=== PATIENT | male | born 1950 | race African-American/Black ===

== ENCOUNTER → 2017-04-05 | Outpatient (CLI) | payer OTHER ==
--- NOTE | 2017-04-05 10:06 | US ---
EXAMINATION TYPE: US liver DATE OF EXAM: 04/05/2017 COMPARISON: NONE CLINICAL HISTORY: B18.2 chronic Hep C. Chronic Hepatitis C EXAM MEASUREMENTS: Liver Length: 16.0 cm Gallbladder Wall: 0.2 cm CBD: 0.4 cm Right Kidney: 10.7 x 4.4 x 4.8 cm Pancreas: limited evaluation due to overlying bowel content Liver: heterogeneous Gallbladder: no evidence of stones Evidence for sonographic Coello's sign: no CBD: appears wnl Right Kidney: cystic areas upper pole, largest = 2.7 x 2.9 x 2.4cm IMPRESSION: 1. Probable fatty hepatic infiltration. 2. Right renal cystic change.
[2017-04-05 10:45] LABS: INR 1.3 (<1.2); Prothrombin Time 12.3 sec (9.0-12.0)
[2017-04-05 10:58] LABS: Albumin 3.9 g/dL (3.5-5.0); Bilirubin, Delta 0.6 mg/dL (0.0-0.2); Bilirubin,Unconjugated 0.6 mg/dL (0.0-1.1); Total Bilirubin 1.2 mg/dL (0.2-1.3); Total Protein 7.9 g/dL (6.3-8.2)
[2017-04-05 11:11] LABS: Basophils % (A) 1 %; Eosinophils # (A) 0.2 k/uL (0-0.7); Eosinophils % (A) 4 %; HCT 41.7 % (39.0-53.0); HGB 13.1 gm/dL (13.0-17.5); Lymphocytes # (A) 1.4 k/uL (1.0-4.8); Lymphocytes % (A) 36 %; MCH 32.4 pg (25.0-35.0); MCHC 31.6 g/dL (31.0-37.0); MCV 102.6 fL (80.0-100.0); Macrocytosis Slight; Mean Platelet Volume 9.2; Monocytes # (A) 0.4 k/uL (0-1.0); Monocytes % (A) 11 %; Neutrophils # (A) 1.7 k/uL (1.3-7.7); Neutrophils % (A) 44 %; Platelet Count 128 k/uL (150-450); RBC 4.06 m/uL (4.30-5.90); RDW 15.4 % (11.5-15.5); WBC 3.8 k/uL (3.8-10.6)
== END | disposition home or self-care (01) ==
LOC: RADUSWWP 09:30
PROVIDERS: ATTEND Internal Medicine Gastroenterology
DX: N28.1 Cyst of kidney, acquired (principal); B18.2 Chronic viral hepatitis C
CPT/HCPCS: 36415; 76705; 80076; 82105; 85025; 85610; 87522; 87902

== ENCOUNTER → 2017-05-04 | Outpatient (CLI) | payer OTHER, MEDICARE ==
[2017-05-04 20:18] LABS: Blood Urea Nitrogen 13 mg/dL (9-20)
--- NOTE | 2017-05-04 22:17 | MR ---
EXAMINATION TYPE: MR liver wo/w con DATE OF EXAM: 05/04/2017 COMPARISON: Liver ultrasound April 05, 2017 HISTORY: Abnormal U/S, ABNORMALITY OF ALPHA-FETOPROTEIN. History of hepatitis C. CONTRAST: Standard multiplanar, multisequence MRI departmental protocol utilizing 7.5 mL intravenous Gadavist g adolinium contrast. Exam is performed of the abdomen focusing on the liver. FINDINGS: LIVER: Liver is overall normal in size and markedly heterogeneous in appearance which correlates with recent ultrasound. There is lobulated peripheral nodular contour which is consistent with underlying cirrhosis. Gallbladder is contracted on the MRI. There is no worrisome intrahepatic or extrahepatic biliary dilatation identified. Dynamic postcontrast images are suboptimal as no true arterial phase i s performed. There is no definitive suspicious focal solid or cystic mass identified. There is no wor risome enhancing lesion with washout to suggest focal hepatocellular carcinoma. Main portal vein exte nding into right and left portal veins are patent and not suspiciously dilated. There are patent hepa tic veins draining into IVC identified. No surrounding ascites is seen currently. OTHER: Visualized lung bases are clear. Spleen is normal in size. There is debris filled stomach cons istent with recent meal ingestion. Pancreas and both adrenal glands are normal in size. There is exop hytic simple appearing 3.2 cm cyst upper pole level right kidney. There are simple appearing 1.8 cm c yst medially mid to lower pole of the left kidney. There are a few additional tiny cysts scattered th roughout the remainder of the left kidney. No hydronephrosis is present bilaterally. No suspicious sm all or large bowel dilatation is present. No concerning abdominal fluid collection is seen. Patient h as very little abdominal fat making evaluation slightly suboptimal. No obvious adenopathy is noted. V isualized osseous structures are intact. IMPRESSION: Cirrhotic liver without suspicious intrahepatic mass or intrahepatic ductal dilatation. MRI findings correlate with recent ultrasound.
== END | disposition home or self-care (01) ==
LOC: RADMRIMAIN 19:32
PROVIDERS: ATTEND Physician Assistant
DX: K74.60 Unspecified cirrhosis of liver (principal)
CPT/HCPCS: 82565; 84520; 74183; 36415; A9581

== ENCOUNTER → 2017-07-04 | Outpatient (CLI) | payer OTHER, MEDICARE ==
[2017-07-04 09:26] LABS: HCT 33.3 % (39.0-53.0); HGB 11.4 gm/dL (13.0-17.5); MCH 32.9 pg (25.0-35.0); MCHC 34.1 g/dL (31.0-37.0); MCV 96.4 fL (80.0-100.0); Mean Platelet Volume 8.3; Platelet Count 134 k/uL (150-450); RBC 3.46 m/uL (4.30-5.90); WBC 4.9 k/uL (3.8-10.6)
[2017-07-04 09:54] LABS: Albumin 3.9 g/dL (3.5-5.0); Bilirubin, Delta 0.4 mg/dL (0.0-0.2); Bilirubin,Unconjugated 0.2 mg/dL (0.0-1.1); Total Bilirubin 0.6 mg/dL (0.2-1.3); Total Protein 8.3 g/dL (6.3-8.2)
[2017-07-05 15:12] LABS: Hepatits C Virus RNA DETECTED (Not detected); Hepatits C Virus RNA, Quant 22 IU/mL (<12); LOG HCV IU/mL 1.34 (<1.08)
== END | disposition home or self-care (01) ==
LOC: LABWHC1 08:46
PROVIDERS: ATTEND Physician Assistant
DX: B18.2 Chronic viral hepatitis C (principal)
CPT/HCPCS: 36415; 80076; 85027; 87522

== ENCOUNTER → 2017-10-30 | Outpatient (CLI) | payer OTHER, MEDICARE ==
[2017-10-30 09:14] LABS: HCT 28.7 % (39.0-53.0); HGB 8.8 gm/dL (13.0-17.5); MCH 27.3 pg (25.0-35.0); MCHC 30.7 g/dL (31.0-37.0); MCV 88.8 fL (80.0-100.0); Mean Platelet Volume 9.2; Platelet Count 173 k/uL (150-450); RBC 3.23 m/uL (4.30-5.90); RDW 14.8 % (11.5-15.5); WBC 4.3 k/uL (3.8-10.6)
== END | disposition home or self-care (01) ==
LOC: LABWHC1 08:40
PROVIDERS: ATTEND Physician Assistant
DX: B18.2 Chronic viral hepatitis C (principal)
CPT/HCPCS: 36415; 85027

== ENCOUNTER → 2017-11-09 | Outpatient (CLI) | payer OTHER, MEDICARE | END | disposition home or self-care (01) | LOC: LABWHC1 09:42 | PROVIDERS: ATTEND Physician Assistant | DX: B18.2 Chronic viral hepatitis C (principal) | CPT/HCPCS: 36415; 82105 ==

== ENCOUNTER 2017-12-11 07:35 | Day surgery (SDC) | payer OTHER, MEDICARE ==
[2017-12-06 12:24] VITALS: BMI 25.0
[~2017-12-11 07:35] MED LIST: LACTATED RINGERS 1,000 ML IV SCH
[2017-12-11 08:41] VITALS: TEMP 98.5
[2017-12-11] MEDS ORDERED: LIDOCAINE 1% 20 ML VIAL (10MG/ML) FOR IV START INTRADERMA ONE (08:52)
[2017-12-11] MEDS ORDERED: fentaNYL (PF) 50 MCG/ML 2 ML AMP ONE (09:13)
[2017-12-11] MEDS ORDERED: LIDOCAINE 1% INJ 10MG/ML (20 ML MDV) ONE (09:13)
[2017-12-11] MEDS ORDERED: PROPOFOL 10 MG/ML 20 ML VIAL IV ONE (09:13)
[2017-12-11 09:56] VITALS: RESP 18
--- NOTE | 2017-12-11 10:00 | P.PCN ---
Date of Procedure: 12/11/17 Procedure(s) Performed: Procedures: 1. Esophagogastroduodenoscopy and biopsy. 2. Total colonoscopy. Preoperative diagnosis: Iron deficiency anemia. Postoperative diagnosis: 1. Mild gastritis and duodenitis. 2. Normal colonoscopy. Preparation: HalfLytely prep. Sedation: Was provided by anesthesia. Brief clinical history: The patient is a 67-year-old male who is scheduled for this evaluation because of iron deficiency anemia. He had prior colonoscopy but no recent upper endoscopy and colonoscopy. He has no overt bleeding or any specific GI complaints at this time. Procedure: With the patient on his left lateral decubitus position and after informed consent and adequate sedation, I passed the Olympus-GIF 160 video upper endoscope through the cricopharyngeus down the esophagus. GE junction was around 41 cm from the incisors and there was no definite hiatal hernia or any obvious esophagitis or complicated reflux disease. The endoscope was then passed into the stomach which was insufflated with air and inspected in detail including the retroflex view in the cardia. There was some mottling, erythema and friability in the antrum but no ulcers or erosions. Pyloric channel did not show any ulcers. Duodenal bulb shows mottling, erythema and friability but no ulcers, erosions or bleeding. Post bulbar area and descending duodenum appeared normal. I obtained biopsies from the duodenum, antrum and esophagus then the endoscope was withdrawn and I proceeded with the colonoscopy. Perianal area did not show any fissures or fistulas. There were no masses felt on digital rectal examination. The Olympus CFQ 160L video colonoscope was then inserted in the rectum in the usual fashion and advanced to the cecum. The mucosa appeared healthy. No polyps or tumors were seen or any obvious diverticular disease or bleeding. No angiodysplasia or other potential sources of bleeding. I retroflexed the endoscope in the rectum before the endoscope was withdrawn. Low-grade internal hemorrhoids were noted with no evidence of bleeding. The patient tolerated the procedure well. Plan: The patient was reassured. Will await biopsy results. Consideration would be made for small bowel study depending on his clinical course and especially if there is evidence of bleeding in the GI tract either overtly or occult. I would be happy to see him in the future. He will follow up with you as planned.
[2017-12-11 10:26] VITALS: BP 121/82; PULSE 57
== END 2017-12-11 10:53 | disposition home or self-care (01) ==
LOC: ORWHC2ENDO 07:35
DX: K29.50 Unspecified chronic gastritis without bleeding (principal); D50.9 Iron deficiency anemia, unspecified; K29.80 Duodenitis without bleeding; K20.9 Esophagitis, unspecified; K64.8 Other hemorrhoids; F17.210 Nicotine dependence, cigarettes, uncomplicated; I10 Essential (primary) hypertension; Z79.82 Long term (current) use of aspirin; Z79.899 Other long term (current) drug therapy
CPT/HCPCS: 88305; 43239; 45378; J2001; J3010; J2704

== ENCOUNTER → 2018-05-21 | Outpatient (CLI) | payer OTHER, MEDICARE ==
[2018-05-21 10:18] LABS: HCT 37.2 % (39.0-53.0); HGB 12.2 gm/dL (13.0-17.5); MCH 31.6 pg (25.0-35.0); MCHC 32.7 g/dL (31.0-37.0); MCV 96.6 fL (80.0-100.0); Mean Platelet Volume 8.1; Platelet Count 144 k/uL (150-450); RBC 3.85 m/uL (4.30-5.90); WBC 4.1 k/uL (3.8-10.6)
[2018-05-21 18:34] LABS: Iron Saturation 31.01 (15.00-50.00)
[2018-05-21 18:36] LABS: Alpha Fetoprotein, Tumor Mkr 7.5 ng/mL (0.0-7.9)
[2018-05-21 18:51] LABS: Albumin/Globulin Ratio 1.18 (1.60-3.17); Bilirubin, Conjugated 0.3 mg/dL (0.20-0.40); Bilirubin,Unconjugated 0.6 mg/dL; Globulin 3.4 g/dL (1.6-3.3); Total Bilirubin 0.9 mg/dL (0.2-1.2); Total Protein 7.4 g/dL (6.2-8.2)
[2018-05-22 15:12] LABS: Hepatits C Virus RNA Not detected (Not detected); Hepatits C Virus RNA, Quant <12 IU/mL (<12); LOG HCV IU/mL <1.08 (<1.08)
== END | disposition home or self-care (01) ==
LOC: LABWHC1 09:12
PROVIDERS: ATTEND Physician Assistant
DX: B18.2 Chronic viral hepatitis C (principal); D64.9 Anemia, unspecified
CPT/HCPCS: 36415; 80076; 82105; 82728; 83540; 83550; 85027; 87522

== ENCOUNTER → 2018-06-14 | Outpatient (CLI) | payer OTHER, MEDICARE ==
--- NOTE | 2018-06-14 12:20 | US ---
EXAMINATION TYPE: US liver plus Doppler DATE OF EXAM: 06/14/2018 COMPARISON: Ultrasound 04/05/2017 CLINICAL HISTORY: 67-year-old male Cirrhosis of the liver K74.60; patient stated has Hepatitis C TECHNIQUE: Multiple sonographic images of the right upper quadrant are obtained. Color Doppler and sp ectral waveform analysis of the hepatic vasculature. FINDINGS: EXAM MEASUREMENTS: Liver Length: 15.1 cm Gallbladder Wall: 0.2 cm CBD: 0.5 cm Right Kidney: 11.0 x 5.2 x 4.0 cm Pancreas: Obscured by bowel gas Liver: Heterogeneous with coarsened echotexture and nodular contour compatible with cirrhosis. No mas ses seen -Color flow patency documented in Portal Veins with directional blood flow to liver; there is monopha sic waveform with peak systolic velocity of 15 cm/s. -The main portal vein is borderline to mildly dilated at 1.4 cm. Some peripherally oriented echoes or wall thickening is noted at its branch point with the left portal vein, images #[id number], [id number] -Common Hepatic Artery Flow to liver. -Hepatic Vein flow to IVC. Intimal wall thickening is noted at MPV confluence with Left Portal Vein on Gallbladder: wnl Evidence for sonographic Coello's sign: no CBD: wnl Right Kidney: couple of simple cysts noted in upper pole with larger cyst = 3.1 x 2.9 x 2.7cm. IMPRESSION: 1. Cirrhotic morphology of the liver. No sonographic evidence for hepatoma. 2. Some wall thickening/peripheral echoes in the main portal vein near its branch point with the left portal vein. Some nonocclusive, chronic mural-based thrombus is difficult to exclude. 3. There is normal hepatopedal flow of the portal vein but the vessel is mildly dilated with sluggish flow suggesting underlying portal venous hypertension.
== END ==
LOC: RADUSWWP 07:43
PROVIDERS: ATTEND Internal Medicine Gastroenterology
DX: K74.60 Unspecified cirrhosis of liver (principal); R93.89 Abnormal findings on diagnostic imaging of other specified body structures
CPT/HCPCS: 76705

== ENCOUNTER → 2018-12-10 | Outpatient (CLI) | payer OTHER, MEDICARE ==
[2018-12-10 10:08] LABS: HCT 34.4 % (39.0-53.0); HGB 11.8 gm/dL (13.0-17.5); MCH 32.6 pg (25.0-35.0); MCHC 34.5 g/dL (31.0-37.0); MCV 94.7 fL (80.0-100.0); Mean Platelet Volume 7.8; Platelet Count 168 k/uL (150-450); RBC 3.63 m/uL (4.30-5.90); RDW 14.6 % (11.5-15.5); WBC 5.1 k/uL (3.8-10.6)
[2018-12-10 10:17] LABS: INR 1.1 (<1.2); Prothrombin Time 11.5 sec (9.0-12.0)
[2018-12-10 16:07] LABS: Albumin 4.3 g/dL (3.80-4.90); Albumin/Globulin Ratio 1.3 (1.60-3.17); Bilirubin, Conjugated 0.3 mg/dL (0.20-0.40); Bilirubin,Unconjugated 0.4 mg/dL; Globulin 3.3 g/dL (1.6-3.3); Total Bilirubin 0.7 mg/dL (0.2-1.2); Total Protein 7.6 g/dL (6.2-8.2)
[2018-12-11 13:38] LABS: LOG HCV IU/mL <1.08 (<1.08)
== END | disposition home or self-care (01) ==
LOC: LABWHC1 09:14
PROVIDERS: ATTEND Physician Assistant
DX: B18.2 Chronic viral hepatitis C (principal)
CPT/HCPCS: 36415; 80076; 82105; 85027; 85610; 87522

== ENCOUNTER → 2019-06-11 | Outpatient (CLI) | payer OTHER, MEDICARE ==
[2019-06-11 09:49] LABS: HCT 32.8 % (39.0-53.0); HGB 10.5 gm/dL (13.0-17.5); MCV 90.6 fL (80.0-100.0); Mean Platelet Volume 9.5; Platelet Count 179 k/uL (150-450); RBC 3.62 m/uL (4.30-5.90); RDW 15.3 % (11.5-15.5); WBC 3.6 k/uL (3.8-10.6)
[2019-06-11 09:52] LABS: INR 1.1 (<1.2); Prothrombin Time 11.3 sec (9.0-12.0)
[2019-06-11 16:00] LABS: Albumin 4.4 g/dL (3.80-4.90); Albumin/Globulin Ratio 1.29 (1.60-3.17); Bilirubin, Conjugated 0.2 mg/dL (0.20-0.40); Bilirubin,Unconjugated 0.3 mg/dL; Globulin 3.4 g/dL (1.6-3.3); Total Bilirubin 0.5 mg/dL (0.3-1.2); Total Protein 7.8 g/dL (6.2-8.2)
[2019-06-11 16:03] LABS: Alpha Fetoprotein, Tumor Mkr 6.4 ng/mL (0.0-7.9)
== END | disposition home or self-care (01) ==
LOC: LABWHC1 09:11
PROVIDERS: ATTEND Physician Assistant
DX: B18.2 Chronic viral hepatitis C (principal)
CPT/HCPCS: 36415; 80076; 82105; 85027; 85610; 87522

== ENCOUNTER → 2019-12-25 | Outpatient (CLI) | payer OTHER, MEDICARE ==
[2019-12-25 13:37] LABS: HCT 35.4 % (39.0-53.0); HGB 11.2 gm/dL (13.0-17.5); MCH 29.2 pg (25.0-35.0); MCHC 31.7 g/dL (31.0-37.0); MCV 92.3 fL (80.0-100.0); Mean Platelet Volume 8.9; Platelet Count 163 k/uL (150-450); RBC 3.83 m/uL (4.30-5.90); RDW 15.9 % (11.5-15.5); WBC 4.9 k/uL (3.8-10.6)
[2019-12-25 21:20] LABS: INR 1.05 (0.90-1.11); Prothrombin Time 11.2 sec (9.9-11.9)
[2019-12-26 03:45] LABS: Albumin 4.4 g/dL (3.80-4.90); Albumin/Globulin Ratio 1.33 (1.60-3.17); Bilirubin, Conjugated 0.2 mg/dL (0.20-0.40); Bilirubin,Unconjugated 0.3 mg/dL; Globulin 3.3 g/dL (1.6-3.3); Total Bilirubin 0.5 mg/dL (0.3-1.2); Total Protein 7.7 g/dL (6.2-8.2)
[2019-12-26 06:15] LABS: Alpha Fetoprotein, Tumor Mkr 5.9 ng/mL (0.0-7.9)
== END | disposition home or self-care (01) ==
LOC: LABWHC1 12:16
PROVIDERS: ATTEND Physician Assistant
DX: B18.2 Chronic viral hepatitis C (principal)
CPT/HCPCS: 36415; 80076; 82105; 85027; 85610; 87522

== ENCOUNTER → 2021-03-08 | Outpatient (CLI) | payer OTHER, MEDICARE ==
[2021-03-08 15:35] LABS: INR 1.03 (0.90-1.11); Prothrombin Time 11.6 sec (9.9-11.9)
[2021-03-08 16:04] LABS: ALT 12 U/L (10-49); AST 26 U/L (14-35); Albumin 4.3 g/dL (3.8-4.9); Albumin/Globulin Ratio 1.32 (1.60-3.17); Alkaline Phosphatase 69 U/L (41-126); Bilirubin, Conjugated <0.20 mg/dL (0.20-0.40); Globulin 3.3 g/dL (1.6-3.3); Total Protein 7.6 g/dL (6.2-8.2)
[2021-03-08 17:21] LABS: HCT 26.8 % (39.6-50.0); HGB 8.7 g/dL (13.0-17.0); MCH 24.9 pg (27.0-32.0); MCHC 32.5 g/dL (32.0-37.0); MCV 76.8 fL (80.0-97.0); Mean Platelet Volume 10.6 fL (9.5-12.2); Platelet Count 162 X 10*3/uL (140-440); RBC 3.49 X 10*6/uL (4.40-5.60); RDW 21.6 % (11.5-14.5); WBC 3.54 X 10*3/uL (4.50-10.00)
== END | disposition home or self-care (01) ==
LOC: LABWHC1 09:45
PROVIDERS: ATTEND Physician Assistant
DX: B18.2 Chronic viral hepatitis C (principal)
CPT/HCPCS: 36415; 80076; 82105; 85027; 85610; 87522

== ENCOUNTER → 2021-10-29 | Day surgery (SDC) | payer OTHER, MEDICARE ==
[2021-10-28 08:41] VITALS: BMI 24.2
[~2021-10-29] MED LIST changes: +LIDOCAINE 1% (10MG/ML) FOR IV START INTRADERMA ONE; +LIDOCAINE 2% INJ 20 MG/ML (2 ML VIAL) ONE; +PROPOFOL 10 MG/ML 20 ML VIAL IV ONE
[2021-10-29 10:06] VITALS: RESP 16; TEMP 97.7
--- NOTE | 2021-10-29 10:41 | P.PCN ---
Date of Procedure: 10/29/21 Procedure(s) Performed: BRIEF HISTORY: Patient is a 70-year-old -[place] male scheduled for an upper endoscopy for screening for esophageal varices. Patient has history of chronic hep C infection with cirrhosis of the liver that is well compensated. He was treated for chronic hep C in 2018.. PROCEDURE PERFORMED: Esophagogastroduodenoscopy with biopsy. PREOPERATIVE DIAGNOSIS: History of liver cirrhosis/screening for esophageal varices. IV sedation per anesthesia. PROCEDURE: After informed consent was obtained, the patient was brought into the endoscopy unit. IV sedation was administered by Anesthesia under continuous monitoring. Initially the Olympus GIF-140 video endoscope was inserted into the mouth. Esophagus intubated without any difficulty. It was gradually advanced into the stomach and duodenum and carefully examined. The bulb and the second part of the duodenum appeared normal. The scope at this time was withdrawn to the stomach, adequately insufflated with air, and upon careful examination, mucosa of the antrum had mild gastritis and biopsies were done from this area. The, body, cardia and the fundus appeared normal. The scope was then withdrawn into the esophagus. The GE junction was located at 39 cm from the incisors small sliding type hiatal hernia noted.. The esophagus appeared normal. There were no erosions or ulcerations seen. No evidence of esophageal or gastric varices and the patient tolerated the procedure well. IMPRESSION: 1. No evidence of gastric or esophageal varices. 2. Mild antral gastritis and small hiatal hernia. RECOMMENDATIONS: The findings of this examination were discussed with the patient as well as his family. He was advised to follow up with the biopsy results. Recommend repeat EGD in 2-3 years to screen for esophageal varices.
[2021-10-29 11:09] VITALS: BP 146/78; PULSE 61
== END ==
LOC: ORWHC2ENDO 09:24
PROVIDERS: ATTEND Internal Medicine Gastroenterology
DX: K31.A11 Gastric intestinal metaplasia without dysplasia, involving the antrum (principal); K29.50 Unspecified chronic gastritis without bleeding; K74.60 Unspecified cirrhosis of liver; B19.20 Unspecified viral hepatitis C without hepatic coma; I10 Essential (primary) hypertension; Z72.0 Tobacco use; Z97.2 Presence of dental prosthetic device (complete) (partial); Z79.1 Long term (current) use of non-steroidal anti-inflammatories (NSAID); Z79.82 Long term (current) use of aspirin; Z79.899 Other long term (current) drug therapy
CPT/HCPCS: 88305; 43239; J2704; J2001

== ENCOUNTER → 2021-10-29 | Outpatient (CLI) | payer OTHER, MEDICARE ==
--- NOTE | 2021-10-29 10:29 | US ---
EXAMINATION TYPE: US liver DATE OF EXAM: 10/29/2021 COMPARISON: Prior liver ultrasound 2019 CLINICAL HISTORY: cirrhosis of liver K74.60. TECHNIQUE: Multiple sonographic images of the right upper quadrant are obtained. FINDINGS: EXAM MEASUREMENTS: Liver Length: 14.9 cm Gallbladder Wall: 0.2 cm CBD: 0.4 cm Right Kidney: 10.2 X 4.5 X 4.1 cm PHYSICAL THERAPY COORDINATOR NOTES: Pancreas: Obscured by bowel gas Liver: Coarse echotexture, MPV and hepatic artery patent and show hepatopedal flow Gallbladder: wnl Evidence for sonographic Coello's sign: No CBD: wnl Right Kidney: Cyst upper pole= 3.9 x 2.6 x 3.1 cm Suboptimal evaluation of pancreas on initial images. Visualized liver remains heterogeneous. Evaluati on for focal masses suboptimal due to the heterogeneity. No ductal dilatation. No new surrounding asc ites. Abdominal near 3.0 cm simple appearing thin-walled cyst from upper pole right kidney. No right- sided hydronephrosis. Gallbladder shows no intraluminal shadowing mobile gallstones. No new biliary d ilatation. IMPRESSION: Persistent heterogeneous hyperechoic appearance of liver consistent with known hepatocell ular disease. No significant change from 2019 ultrasound.
== END | disposition home or self-care (01) ==
LOC: RADUSWWP 09:30
PROVIDERS: ATTEND Internal Medicine Gastroenterology
DX: K74.60 Unspecified cirrhosis of liver (principal)
CPT/HCPCS: 76705

== ENCOUNTER → 2022-07-12 | Outpatient (CLI) | payer OTHER, MEDICARE ==
[2022-07-12 16:43] LABS: HCT 28.1 % (39.6-50.0); HGB 9.2 g/dL (13.0-17.0); MCH 28.1 pg (27.0-32.0); MCHC 32.7 g/dL (32.0-37.0); MCV 85.9 fL (80.0-97.0); Mean Platelet Volume 12.2 fL (9.5-12.2); NRBC Per 100 WBC 0 /100 WBCS (0.0-0.0); Platelet Count 175 X 10*3/uL (140-440); RBC 3.27 X 10*6/uL (4.40-5.60); WBC 4.29 X 10*3/uL (4.50-10.00)
[2022-07-12 16:51] LABS: African American GFR (CKD) 53.9 (60.0-200.0); Albumin 4.4 g/dL (3.8-4.9); Albumin/Globulin Ratio 1.26 (1.60-3.17); Anion Gap 8.2 mmol/L (10.00-18.00); BUN/Creat Ratio 11.07 Ratio (12.00-20.00); Blood Urea Nitrogen 16.6 mg/dL (9.0-27.0); Calcium 9.8 mg/dL (8.7-10.3); Carbon Dioxide 27.8 mmol/L (20.0-27.5); Globulin 3.5 g/dL (1.6-3.3); Non-African American GFR(CKD) 46.5 (60.0-200.0); Potassium 4.1 mmol/L (3.5-5.5); Total Bilirubin 0.2 mg/dL (0.30-1.20); Total Protein 7.9 g/dL (6.2-8.2)
== END | disposition home or self-care (01) ==
LOC: LABWHC1 08:58
PROVIDERS: ATTEND Internal Medicine Gastroenterology
DX: K74.60 Unspecified cirrhosis of liver (principal)
CPT/HCPCS: 36415; 80053; 82105; 85027

== ENCOUNTER → 2022-07-14 | Outpatient (CLI) | payer OTHER, MEDICARE ==
--- NOTE | 2022-07-14 09:44 | US ---
EXAMINATION TYPE: US liver DATE OF EXAM: 07/14/2022 COMPARISON: NONE CLINICAL INDICATION: Male, 71 years old with history of K74.60 CIRRHOSIS OF LIVER Cirrhosis TECHNIQUE: Multiple sonographic images of the right upper quadrant are obtained. FINDINGS: EXAM MEASUREMENTS: Liver Length: 15.5 cm Gallbladder Wall: .2 cm CBD: .3 cm Right Kidney: 11.8 x 4.8 x 5.3 cm CLAY MINER NOTES: Pancreas: Tail obscured by overlying bowel gas Liver: Increased attenuation Gallbladder: No stones seen Evidence for sonographic Coello's sign: No CBD: wnl Right Kidney: Anechoic area seen upper pole 4.6 x 3.2 x 4.1 cm. The visualized portions of the pancreas is unremarkable. The tail is obscured by overlying bowel gas. Coarsened hyperechoic echotexture of the liver without focal lesion. Evaluation is limited due to he terogeneous appearance of the liver. No cholelithiasis, wall thickening, pericholecystic fluid. Per s onographer, negative sonographic Coello sign. The common bile duct is within normal limits. A cyst is demonstrated within the upper pole of the right kidney measuring up to 4.6 cm. No hydronephrosis or solid contour deforming mass or nephrolithiasis. IMPRESSION: Persistent heterogenous hyperechoic appearance of liver consistent with known hepatocellular disease. No significant change from prior exam.
== END | disposition home or self-care (01) ==
LOC: RADUSWWP 08:44
PROVIDERS: ATTEND Internal Medicine Gastroenterology
DX: K74.60 Unspecified cirrhosis of liver (principal); K76.89 Other specified diseases of liver
CPT/HCPCS: 76705

== ENCOUNTER → 2022-09-05 | Outpatient (CLI) | payer OTHER, MEDICARE ==
[2022-09-05 15:57] LABS: % Iron Saturation 12.75 (15.00-50.00); ALT 12 U/L (10-49); AST 30 U/L (14-35); Albumin 4.3 d/dL (3.8-4.9); Albumin/Globulin Ratio 1.34 Ratio (1.60-3.17); Alkaline Phosphatase 70 U/L (41-126); BUN/Creat Ratio 11.28 Ratio (12.00-20.00); Blood Urea Nitrogen 20.3 mg/dL (9.0-27.0); Calcium 9.8 mg/dL (8.7-10.3); Carbon Dioxide 24.9 mmol/L (21.6-31.8); Chloride 105 mmol/L (96-109); Ferritin 23.8 ng/mL (22.0-322.0); Globulin 3.2 d/dL (1.6-3.3); Glucose 69 mg/dL (70-110); Iron 51 UG/DL (65-175); Potassium 4.6 mmol/L (3.5-5.5); Sodium 141 mmol/L (135-145); Total Bilirubin 0.3 mg/dL (0.3-1.2); Total Iron Binding Capacity 400 UG/DL (228-460); Total Protein 7.5 d/dL (6.2-8.2)
== END | disposition home or self-care (01) ==
LOC: LABWHC1 10:35
PROVIDERS: ATTEND Nurse Practitioner Family
DX: D50.9 Iron deficiency anemia, unspecified (principal); K74.60 Unspecified cirrhosis of liver
CPT/HCPCS: 36415; 80053; 82105; 82728; 83540; 83550

== ENCOUNTER → 2023-01-16 | Outpatient (CLI) | payer OTHER, MEDICARE ==
[2023-01-16 16:41] LABS: Chol/HDL Ratio 2.27 Ratio; Prostate Specific Antigen 3.62 ng/mL (0.000-6.500); VLDL Calculation 13.62 mg/dL (5.00-40.00)
== END | disposition home or self-care (01) ==
LOC: LABWHC1 09:48
PROVIDERS: ATTEND Family Medicine
DX: Z00.01 Encounter for general adult medical examination with abnormal findings (principal); E66.3 Overweight; N40.1 Benign prostatic hyperplasia with lower urinary tract symptoms; R53.83 Other fatigue
CPT/HCPCS: 36415; 80061; 84153

== ENCOUNTER → 2023-02-06 | Outpatient (CLI) | payer OTHER, MEDICARE ==
[2023-02-06 16:53] LABS: HCT 30.8 % (39.6-50.0); HGB 9.9 g/dL (13.0-17.0); MCH 28.1 pg (27.0-32.0); MCHC 32.1 g/dL (32.0-37.0); MCV 87.5 FL (80.0-97.0); Mean Platelet Volume 12.2 FL (9.5-12.2); NRBC Per 100 WBC 0 X 10*3/uL (0.00-0.01); Platelet Count 188 X 10*3/uL (140-440); RBC 3.52 X 10*6/uL (4.40-5.60); RDW 16.8 % (11.5-14.5); WBC 4.34 X 10*3/uL (4.50-10.00)
== END | disposition home or self-care (01) ==
LOC: LABWHC1 08:55
PROVIDERS: ATTEND Internal Medicine Gastroenterology
DX: K74.60 Unspecified cirrhosis of liver (principal)
CPT/HCPCS: 36415; 85027

== ENCOUNTER → 2023-02-27 | Outpatient (CLI) | payer OTHER, MEDICARE ==
--- NOTE | 2023-02-27 07:51 | US ---
EXAMINATION TYPE: US liver DATE OF EXAM: 02/27/2023 COMPARISON: 07/14/2022 CLINICAL INDICATION: Male, 72 years old with history of K74.60 CIRRHOSIS OF LIVER; TECHNIQUE: Multiple sonographic images of the right upper quadrant are obtained. FINDINGS: EXAM MEASUREMENTS: Liver Length: 15.8 cm Gallbladder Wall: 0.2 cm CBD: 0.3 cm Right Kidney: 11.4 x 4.7 x 5.8 cm Pancreas: heterogenous Liver: heterogenous no suspicious ulcerations, cystic structures are dilated ducts. Gallbladder: debris seen with change in patient position; possible gallbladder wall polyp measuring 2 mm versus adherent gallstone. Evidence for sonographic Coello's sign: No CBD: wnl Right Kidney: cyst = 3.7 x 3.8 x 4.1 cm IMPRESSION: 1. Very suggestive of hepatic cirrhosis. No suspicious observations. 2. Cholelithiasis. 3. Right simple appearing renal cyst.
== END | disposition home or self-care (01) ==
LOC: RADUSWWP 07:27
PROVIDERS: ATTEND Internal Medicine Gastroenterology
DX: N28.1 Cyst of kidney, acquired (principal); K74.60 Unspecified cirrhosis of liver; K80.20 Calculus of gallbladder without cholecystitis without obstruction
CPT/HCPCS: 76705

== ENCOUNTER → 2023-08-08 | Outpatient (CLI) | payer MEDICARE, OTHER ==
[2023-08-08 18:38] LABS: HCT 33.8 % (39.6-50.0); HGB 11.3 g/dL (13.0-17.0); MCH 30.5 pg (27.0-32.0); MCHC 33.4 g/dL (32.0-37.0); MCV 91.1 FL (80.0-97.0); Mean Platelet Volume 12.1 FL (9.5-12.2); NRBC Per 100 WBC 0 X 10*3/uL (0.00-0.01); Platelet Count 177 X 10*3/uL (140-440); RBC 3.71 X 10*6/uL (4.40-5.60); RDW 16.5 % (11.5-14.5); WBC 4.91 X 10*3/uL (4.50-10.00)
[2023-08-08 20:26] LABS: ALT 13 U/L (10-49); AST 30 U/L (14-35); Albumin 4.5 g/dL (3.8-4.9); Albumin/Globulin Ratio 1.36 Ratio (1.60-3.17); Alkaline Phosphatase 71 U/L (41-126); BUN/Creat Ratio 12.47 Ratio (12.00-20.00); Blood Urea Nitrogen 18.7 mg/dL (9.0-27.0); Calcium 10.1 mg/dL (8.7-10.3); Carbon Dioxide 24.7 mmol/L (21.6-31.8); Chloride 103 mmol/L (96-109); Globulin 3.3 g/dL (1.6-3.3); Glucose 94 mg/dL (70-110); Potassium 3.8 mmol/L (3.5-5.5); Sodium 141 mmol/L (135-145); Total Bilirubin 0.5 mg/dL (0.3-1.2); Total Protein 7.8 g/dL (6.2-8.2)
== END | disposition home or self-care (01) ==
LOC: LABWHC1 08:41
PROVIDERS: ATTEND Internal Medicine Gastroenterology
DX: K74.60 Unspecified cirrhosis of liver (principal)
CPT/HCPCS: 36415; 80053; 82105; 85027

== ENCOUNTER → 2023-08-10 | Outpatient (CLI) | payer MEDICARE, OTHER ==
--- NOTE | 2023-08-10 17:54 | US ---
EXAMINATION TYPE: US liver DATE OF EXAM: 08/10/2023 COMPARISON: Multiple US's CLINICAL INDICATION: Male, 72 years old with history of K74.60 CIRRHOSIS OF LIVER; Known cirrhosis TECHNIQUE: Multiple sonographic images of the right upper quadrant are obtained. FINDINGS: EXAM MEASUREMENTS: Liver Length: 15.7 cm Gallbladder Wall: 0.2 centimeters CBD: 0.3 cm Right Kidney: 10.7 cm Pancreas: wnl, tail obscured by overlying bowel gas Liver: Coarse echotexture, heterogeneous, similar in appearance as compared to prior Gallbladder: wnl Evidence for sonographic Coello's sign: No CBD: wnl Right Kidney: Cyst upper pole= 4.1 x 3.0 x 4.0 cm, similar in appearance when compared to prior IMPRESSION: 1. Coarsened liver echotexture is suggestion of liver margin nodularity. Findings are consistent with cirrhosis, stable compared to previous. 2. Pancreatic tail limited by bowel gas. 3. Normal gallbladder. 4. Stable right renal cyst.
== END | disposition home or self-care (01) ==
LOC: RADUSWWP 08:47
PROVIDERS: ATTEND Internal Medicine Gastroenterology
DX: K74.60 Unspecified cirrhosis of liver (principal); R14.3 Flatulence; N28.1 Cyst of kidney, acquired
CPT/HCPCS: 76705

== ENCOUNTER → 2024-01-15 | Outpatient (CLI) | payer OTHER, MEDICARE ==
[2024-01-15 16:07] LABS: HCT 28.8 % (39.6-50.0); HGB 9.8 g/dL (13.0-17.0); MCH 31.6 pg (27.0-32.0); MCV 92.9 FL (80.0-97.0); Mean Platelet Volume 11.8 FL (9.5-12.2); NRBC Per 100 WBC 0 X 10*3/uL (0.00-0.01); Platelet Count 178 X 10*3/uL (140-440); RDW 15.4 % (11.5-14.5)
[2024-01-15 22:35] LABS: ALT 13 U/L (10-49); AST 29 U/L (14-35); Albumin 4.2 g/dL (3.8-4.9); Albumin/Globulin Ratio 1.35 Ratio (1.60-3.17); Alkaline Phosphatase 73 U/L (41-126); BUN/Creat Ratio 16.13 Ratio (12.00-20.00); Blood Urea Nitrogen 24.2 mg/dL (9.0-27.0); Calcium 9.7 mg/dL (8.7-10.3); Carbon Dioxide 22.5 mmol/L (21.6-31.8); Chloride 105 mmol/L (96-109); Chol/HDL Ratio 2.42 Ratio; Globulin 3.1 g/dL (1.6-3.3); Glucose 93 mg/dL (70-110); LDL Cholesterol,Calculated 72.9 mg/dL (0.0-131.0); Potassium 4.1 mmol/L (3.5-5.5); Prostate Specific Antigen 4.08 ng/mL (0.000-6.500); Sodium 142 mmol/L (135-145); Total Bilirubin 0.3 mg/dL (0.3-1.2); Total Protein 7.3 g/dL (6.2-8.2); VLDL Calculation 11.68 mg/dL (5.00-40.00)
== END | disposition home or self-care (01) ==
LOC: LABWHC1 09:21
PROVIDERS: ATTEND Family Medicine
CPT/HCPCS: 36415; 80053; 80061; 84153; 85027

== ENCOUNTER → 2024-01-19 | Outpatient (CLI) | payer OTHER, MEDICARE ==
[2024-01-19 18:30] LABS: HGB 9.8 g/dL (13.0-17.0); MCH 31.4 pg (27.0-32.0); MCHC 33.8 g/dL (32.0-37.0); MCV 92.9 FL (80.0-97.0); Mean Platelet Volume 11.4 FL (9.5-12.2); NRBC Per 100 WBC 0 X 10*3/uL (0.00-0.01); Platelet Count 201 X 10*3/uL (140-440); RBC 3.12 X 10*6/uL (4.40-5.60); RDW 15.1 % (11.5-14.5)
[2024-01-19 18:54] LABS: ALT 14 U/L (10-49); AST 29 U/L (14-35); Albumin 4.3 g/dL (3.8-4.9); Albumin/Globulin Ratio 1.23 Ratio (1.60-3.17); Alkaline Phosphatase 81 U/L (41-126); BUN/Creat Ratio 10.64 Ratio (12.00-20.00); Blood Urea Nitrogen 14.9 mg/dL (9.0-27.0); Calcium 9.7 mg/dL (8.7-10.3); Carbon Dioxide 29.5 mmol/L (21.6-31.8); Chloride 103 mmol/L (96-109); Globulin 3.5 g/dL (1.6-3.3); Glucose 91 mg/dL (70-110); Potassium 3.9 mmol/L (3.5-5.5); Sodium 142 mmol/L (135-145); Total Bilirubin 0.3 mg/dL (0.3-1.2); Total Protein 7.8 g/dL (6.2-8.2)
== END | disposition home or self-care (01) ==
LOC: LABWHC1 13:57
PROVIDERS: ATTEND Nurse Practitioner Family
DX: K74.60 Unspecified cirrhosis of liver (principal)
CPT/HCPCS: 36415; 80053; 82105; 85027

== ENCOUNTER → 2024-01-25 | Outpatient (CLI) | payer OTHER, MEDICARE ==
--- NOTE | 2024-01-25 14:55 | US ---
EXAMINATION TYPE: US liver DATE OF EXAM: 01/25/2024 COMPARISON: 08/10/23 CLINICAL INDICATION: Male, 73 years old with history of K74.60 UNSPECIFIED CIRRHOSIS OF LIVER; cirrho sis TECHNIQUE: Grayscale and color Doppler imaging of the right upper quadrant was performed. FINDINGS: EXAM MEASUREMENTS: Liver Length: 14.7 cm Gallbladder Wall: 0.24 cm CBD: 0.32 cm Right Kidney: 9.0 x 4.4 x 4.1 cm PAYROLL ASSOCIATE NOTES: Pancreas: Obscured by bowel gas Liver: diffusely heterogeneous, coarse echotexture Gallbladder: wnl Evidence for sonographic Coello's sign: No CBD: wnl Right Kidney: cystic area sup pole measuring 4.3 x 3.3 x 2.6cm Liver is diffusely heterogenous with coarse echotexture and surface nodularity. No focal lesion ident ified. No gallstones, wall thickening or surrounding fluid. Negative sonographic Coello sign. Pancrea s is obscured by overlying bowel gas. Common bile duct is within normal limits. No hydronephrosis or shadowing renal calculi within the right kidney. Simple cyst within the upper pole measurement of 4.3 cm. No visualized ascites within the right upper quadrant. IMPRESSION: 1. Hepatic cirrhosis without focal lesion identified. 2. Stable simple right renal cyst. [facility], , 01/25/2024 2:53 PM
== END | disposition home or self-care (01) ==
LOC: RADUSWWP 14:19
PROVIDERS: ATTEND Internal Medicine Gastroenterology
CPT/HCPCS: 76705

== ENCOUNTER → 2024-02-29 | Outpatient (CLI) | payer OTHER ==
--- NOTE | 2024-02-29 13:30 | MR ---
EXAMINATION TYPE: MR brain wo/w con DATE OF EXAM: 02/29/2024 12:34 PM COMPARISON: None. CLINICAL INDICATION: Male, 73 years old with history of H53.432 visual field defect, visual field def ect, attention to right parietal lobe IV Contrast: 7 cc Gadavist (None if empty) TECHNIQUE: Multiplanar, multisequence images of the brain and brainstem were acquired before and aft er administration of 7 mL IV Gadavist. Diffusion weighted imaging is performed. FINDINGS: No evidence for acute infarction, hemorrhage, midline shift shift, herniation, or effacement of basal cisterns. Some slight scalloping of the inner table along the lateral right frontal convexity and prominence to the underlying CSF space measuring 2.6 cm wide and 7 mm thick. Possible small arachnoid cyst here. There is mild age-related volume loss overlying the bilateral cerebral convexities. No hydrocephalus. Major intracranial flow voids are intact. T2/FLAIR weighted sequences show mild to moderate scattered bright signal foci within the subcortical and deep white matter regions of both cerebral hemispheres. Expressly 20 foci in the right cerebral hemisphere and 15 foci in the left cerebral hemisphere. Largest focus measuring 7 mm subcortical larry on lateral right frontoparietal junction. Midline structures demonstrate normal morphology. The craniocervical junction is normal. Post contrast images demonstrate no evidence of pathologic enhancement. Dural venous sinuses are pat ent. Trace mucosal thickening in the ethmoid air cells. The globes are intact. IMPRESSION: 1. Mild age-related cerebral atrophy. No acute intracranial abnormality seen. No enhancing lesions. 2. Scattered T2 bright white matter change and posterior hemispheres with mild to moderate burden. No nspecific findings most likely relating to chronic small vessel ischemic disease. Demyelinating disea se, chronic migraines, and chronic hypertension are also differential considerations. 3. Prominence to the CSF space with slight scalloping of the inner table of the skull at the along th e lateral right frontal convexity. Etiology unclear. Possibly due to an underlying 2.6 x 0.7 cm arach noid cyst. Consider 6 month follow-up to reassess. [facility], , 02/29/2024 1:27 PM
== END | disposition home or self-care (01) ==
LOC: RADMRIMAIN 11:53
PROVIDERS: ATTEND Ophthalmology
DX: H53.432 Sector or arcuate defects, left eye (principal); G93.0 Cerebral cysts; I10 Essential (primary) hypertension; G43.909 Migraine, unspecified, not intractable, without status migrainosus; G37.89 Other specified demyelinating diseases of central nervous system
CPT/HCPCS: 70553; A9585

== ENCOUNTER → 2024-04-04 | Outpatient (CLI) | payer OTHER, MEDICARE ==
[2024-04-04 15:25] LABS: % Iron Saturation 19.73 (15.00-50.00)
== END | disposition home or self-care (01) ==
LOC: LABWHC1 09:40
PROVIDERS: ATTEND Nurse Practitioner Family
DX: D50.9 Iron deficiency anemia, unspecified (principal)
CPT/HCPCS: 36415; 82728; 83540; 83550

== ENCOUNTER 2024-05-24 06:51 | Day surgery (SDC) | payer OTHER, MEDICARE ==
[2024-05-22 11:58] VITALS: BMI 23.8
[2024-05-24] MEDS: LACTATED RINGERS 1,000 ML IV SCH (07:25)
[2024-05-24] MEDS: IV FLUID CONTINUATION 1,000 ML IV ONE (07:26)
[2024-05-24 07:29] VITALS: TEMP 97.9
[2024-05-24] MEDS ORDERED: PROPOFOL 10 MG/ML 20 ML VIAL IV ONE (07:45)
--- NOTE | 2024-05-24 08:13 | P.PCN ---
Date of Procedure: 05/24/24 Procedure(s) Performed: Brief history: Patient is a pleasant 73-year-old -[place] male scheduled for an elective upper endoscopy as well as colonoscopy as a part of evaluation of iron deficiency anemia. He also has history of liver cirrhosis. Procedure performed: Esophagogastroduodenoscopy with biopsy Colonoscopy Preoperative diagnosis: Iron deficiency anemia History of of liver cirrhosis/screening for esophageal varices Anesthesia: MAC Procedure: After informed consent was obtained from the patient was brought into the endoscopy unit and IV sedation was administered by anesthesia under continuous monitoring. Initially upper endoscopy was done. The Olympus GF 160 video endoscope was inserted inserted into the mouth and esophagus intubated without any difficulty and was gradually advanced into the stomach and duodenum and carefully examined. The bulb and second part of the duodenum appeared normal. The scope was then withdrawn into the stomach adequately insufflated with air and upon careful examination the antrum had scattered erosions consistent with gastritis and biopsies were done from this area. Mucosa of the body, cardia and fundus appeared normal. No gastric varices identified. The scope was then withdrawn into the esophagus. The GE junction was located at 40 cm to the incisors. There was a 5 mm tongue of Hernández's appearing mucosa proximal to the GE junction that was biopsied. No esophageal varices seen.. Rest of the esophagus appeared normal. Patient tolerated the procedure well. At this time the patient continued to remain sedation. Initial digital rectal examination was normal. Olympus CF 160 video colonoscope was then inserted into the rectum and gradually advanced to the cecum without any difficulty. Careful examination was performed as the scope was gradually being withdrawn. The prep was excellent. The cecum, ascending colon, transverse colon, descending colon, sigmoid colon and rectum appeared normal. Retroflexion was performed in the rectum and small internal hemorrhoids were noted. Patient tolerated the procedure well. Impression: 1. Upper endoscopy revealed mild antral gastritis and short segment Hernández's esophagus but no evidence of esophageal or gastric varices. 2. Colonoscopy was within normal limits with no evidence of colorectal neoplasia. Recommendations: Findings of this examination were discussed with the patient as well as his family. He was advised to follow-up with the biopsy results. Recommended repeat colonoscopy at age 81.
[2024-05-24 08:19] VITALS: RESP 16
[2024-05-24 08:40] VITALS: BP 133/71; PULSE 71
== END 2024-05-24 08:56 | disposition home or self-care (01) ==
LOC: ORWHC2ENDO 06:51
PROVIDERS: ATTEND Internal Medicine Gastroenterology
DX: K29.50 Unspecified chronic gastritis without bleeding (principal); K31.A11 Gastric intestinal metaplasia without dysplasia, involving the antrum; K21.00 Gastro-esophageal reflux disease with esophagitis, without bleeding; K64.8 Other hemorrhoids; D50.9 Iron deficiency anemia, unspecified; K74.60 Unspecified cirrhosis of liver; K22.70 Barrett's esophagus without dysplasia
CPT/HCPCS: 45378; 43239; J2704; 88305

== ENCOUNTER → 2024-09-13 | Outpatient (CLI) | payer OTHER, MEDICARE ==
[2024-09-13 16:17] LABS: Blood Urea Nitrogen 14.7 mg/dL (9.0-27.0); Glucose 83 mg/dL (70-110)
[2024-09-13 16:18] LABS: ALT 16 U/L (10-49); AST 30 U/L (14-35); Albumin 4.3 g/dL (3.8-4.9); Alkaline Phosphatase 73 U/L (41-126); Calcium 9.6 mg/dL (8.7-10.3); Carbon Dioxide 29.3 mmol/L (21.6-31.8); Chloride 113 mmol/L (96-109); Globulin 3.3 g/dL (1.6-3.3); Potassium 4.2 mmol/L (3.5-5.5); Sodium 153 mmol/L (135-145); Total Bilirubin 0.4 mg/dL (0.3-1.2); Total Protein 7.6 g/dL (6.2-8.2)
[2024-09-13 16:44] LABS: HCT 36.3 % (39.6-50.0); HGB 12.1 g/dL (13.0-17.0); MCHC 33.3 g/dL (32.0-37.0); MCV 93.1 FL (80.0-97.0); NRBC Per 100 WBC 0 X 10*3/uL (0.00-0.01); Platelet Count 179 X 10*3/uL (140-440); RDW 15.9 % (11.5-14.5); WBC 4.62 X 10*3/uL (4.50-10.00)
== END | disposition home or self-care (01) ==
LOC: LABWHC1 09:54
PROVIDERS: ATTEND Internal Medicine Gastroenterology
DX: K74.60 Unspecified cirrhosis of liver (principal)
CPT/HCPCS: 36415; 80053; 82105; 85027